=== PATIENT | female | born 1995 | race African-American/Black ===

== ENCOUNTER 2017-01-26 10:21 | Emergency (ER) | payer MEDICAID ==
[~2017-01-26] VITALS: Ht 152.4 cm; Wt 50.0 kg
[2017-01-26 10:22] VITALS: BP 118/70; PULSE 75; RESP 16; TEMP 98.4; O2SAT 100
[2017-01-26] MEDS ORDERED: ZOFR4TAB3 SL (10:59)
[2017-01-26] MEDS ORDERED: BUTA1CAP PO (10:59)
--- NOTE | 2017-01-26 11:00 | PD ---
HPI Chief Complaint: Headache Time Seen by Provider: 10:43 Travel History International Travel<30 days: No Contact w/Intl Traveler<30days: No Traveled to known affect area: No History of Present Illness HPI 21-year-old female complains of headache. Patient has history recurrent headache in the past. Patient was seen by neurologist and imaging was negative. Patient is given medication for headache in the past. Patient does not know the name of the medication. Patient states that she started having problems headache on the right side has since last night. Patient complain of nausea and photophobia. Patient denies any neck pain. Patient denies any chest pain or shortness of breath. Patient denies abdominal pain. Patient denies any focal weakness or numbness of the extremity. PFSH Past Medical History ?: Not LMP: 01/11/17 Social History Alcohol Use: No Tobacco Use: No Allergies-Medications (Allergen,Severity, Reaction): Coded Allergies: No Known Allergies (Verified Allergy, Unknown, 01/26/17) Review of Systems General / Constitutional: No: Fever Eyes: Positive: Photophobia, No: Visual changes HENT: Positive: Headaches Cardiovascular: No: Chest Pain or Discomfort Respiratory: No: Shortness of Breath Gastrointestinal: Positive: Nausea, No: Abdominal Pain Genitourinary: No: Dysuria Musculoskeletal: No: Pain Skin: No Rash Neurologic: No: Weakness Psychiatric: No: Depression Endocrine: No: Polydipsia Hematologic/Lymphatic: No: Easy Bruising Physical Exam Narrative GENERAL: Well-nourished, well-developed patient. SKIN: Focused skin assessment warm/dry. HEAD: Normocephalic. EYES: No scleral icterus. No injection or drainage. Pupils 2 mm equal reactive. NECK: Supple, trachea midline. No JVD or lymphadenopathy. CARDIOVASCULAR: Regular rate and rhythm without murmurs, gallops, or rubs. RESPIRATORY: Breath sounds equal bilaterally. No accessory muscle use. GASTROINTESTINAL: Abdomen soft, non-tender, nondistended. MUSCULOSKELETAL: No cyanosis, or edema. BACK: Nontender without obvious deformity. No CVA tenderness. Neurologic exam normal. Data Data Last Documented VS Vital Signs Date Time Temp Pulse Resp B/P (MAP) Pulse Ox O2 Delivery O2 Flow Rate FiO2 01/26/17 10:22 98.4 75 16 118/70 (86) 100 MDM Medical Decision Making Medical Screen Exam Complete: Yes Emergency Medical Condition: Yes Differential Diagnosis Differential diagnosis including migraine headache, tension headache, cluster headache. Narrative Course 21-year-old female with headache. History of recurrent headache in the past. Patient was seen by neurologist and workup was negative the past. Diagnosis Primary Impression: Cephalgia Qualified Codes: R51 - Headache Patient Instructions: General Instructions Additional Instructions: Take medications as directed. Follow-up with personal physician and neurologist. Return if worse. Med/Other Pt SpecificInfo: Prescription(s) given Scripts Ondansetron Odt (Zofran Odt) 4 Mg Tab 4 MG SL Q6HR Y for Nausea/Vomiting, #10 TAB 0 Refills Prov: Zaid Patrick MD 01/26/17 Wjqbhkksgk-Mrmwtelaeigax-Tweafcha (Fioricet) 50-300-40 Mg Cap 1-2 CAP PO Q6H Y for HEADACHE, #30 CAP 0 Refills Prov: Zaid Patrick MD 01/26/17 Disposition: 01 DISCHARGE HOME Condition: Stable Zaid Patrick MD Jan 26, 2017 11:00
== END 2017-01-26 11:11 | disposition home or self-care (01) ==
LOC: NEPD 10:21
DX: R51 Headache (principal); R11.0 Nausea; H53.149 Visual discomfort, unspecified
CPT/HCPCS: 99284